=== PATIENT | male | born 1950 | race African-American/Black ===

== ENCOUNTER 2017-08-05 16:38 | Emergency (ER) | payer OTHER ==
[2017-08-05] MEDS ORDERED: traMADol HCl 50 MG TAB ONE (17:27)
--- NOTE | 2017-08-05 21:21 | RAD ---
LEFT SHOULDER THREE VIEWS: Date: 08-05-16 FINDINGS: No fracture, dislocation, or AC joint widening was seen. There are some calcifications around the maria luz ulder near the greater tubercle and above the humeral head suggestive of calcific tendinitis. The vis ible adjacent ribs appear clear. IMPRESSION: 1. No acute findings. 2. Probable calcific tendinitis. POS: HOME
== END 2017-08-05 17:28 | disposition home or self-care (01) ==
LOC: BURERS 16:38
DX: S43.402A Unspecified sprain of left shoulder joint, initial encounter (principal); X50.1XXA Overexertion from prolonged static or awkward postures, initial encounter